=== PATIENT | female | born 1945 | race Caucasian/White ===

== ENCOUNTER 2016-10-19 10:52 | Inpatient (IN) | payer OTHER ==
[~2016-10-19] VITALS: Ht 152.4 cm; Wt 73.0 kg
--- NOTE | ~2016-10-19 | 2DMMODE ---
[facility] [address] [place] [address] 2 D/M-MODE ECHOCARDIOGRAM Name: SIOBHAN POLLACK ANN Room #: 540-P [facility] IN M.R.#: [id number] Admission: 10/19/16 Attend Phys: Daljit Trevino, Discharge: Date of : 49 Date of Service: 10/20/16 1201 Report #: [id number] THIS REPORT FOR: //name// APPROVED REPORT Study performed: 10/20/2016 08:53:02 EXAM: Comprehensive 2D, Doppler, and color-flow Echocardiogram Patient Location: Bedside Room #: 540 Status: routine Other Information Study Quality: Adequate Technically limited study due to lung artifact and body habitus. Indications CVA/TIA Hx: HTN Echo Enhancing Agent Indication: Rule out Shunt Agent(s) / Amount(s) Used: Agitated Saline 6 cc Agitated Saline 6 cc 2D Dimensions RVDd: 34.97 mm LVEF(%): 53.23 (>50%) IVSd: 1.10 (7-11mm) LVOT Diam: 19.02 (18-24mm) LVDd: 36.76 mm PWd: 1.10 (7-11mm) LVDs: 26.90 (25-40mm) Aortic Root: 31.73 mm Torres's LVEF: 53.23 % Volumes Left Atrial Volume (Systole) Single Plane 4CH: 98.93 mL Single Plane 2CH: 80.63 mL LA ESV Index: 56.00 mL/m2 Aortic Valve AoV Peak Robin.: 2.55 m/s AO Peak Gr.: 26.07 mmHg LVOT Max P.43 mmHg AO Mean Gr.: 14.50 mmHg AO V2 Mean: 1.85 m/s LVOT Max V: 1.54 m/s [facility] [place] [address] 2 D/M-MODE ECHOCARDIOGRAM Name: JAKISIOBHAN Room #: 540-P [facility] IN M.R.#: [id number] Admission: 10/19/16 Attend Phys: Daljit Trevino, Discharge: Date of : 49 Date of Service: 10/20/16 1201 Report #: [id number] AO V2 VTI: 47.70 cm YESSY Vmax: 1.71 cm2 Mitral Valve E/A Ratio: 0.8 MV Decel. Time: 270.15 ms MV E Max Robin.: 1.08 m/s MV A Robin.: 1.37 m/s MV PHT: 78.34 ms IVRT: 78.43 ms Pulmonary Valve PV Peak Robin.: 1.73 m/s PV Peak Gr.: 11.99 mmHg Pulmonary Vein P Vein S: 0.90 m/s P Vein A: 0.36 m/s P Vein D: 0.57 m/s P Vein A Dur.: 124.6 msec P Vein S/D Ratio: 1.58 Tricuspid Valve TR Peak Robin.: 3.31 m/s RAP Estimate: 5.00 mmHg TR Peak Gr.: 43.84 mmHg PA Pressure: 49.00 mmHg Left Ventricle The left ventricle is normal size. There is normal LV segmental wall motion. There is normal left ventricular wall thickness. Left ventricular systolic function is normal. LVEF is 55-60%. Grade I - abnormal relaxation pattern. Right Ventricle The right ventricle is normal size. The right ventricular systolic function is normal. Atria Left atrium is severely dilated. Injection of bubbles documented no interatrial shunt. with few bubbles appearing late consistent with intrapulmonary transit The right atrium size is normal. Aortic Valve Aortic valve is calcified but difficult to image. Trace aortic regurgitation. There is mild valvular aortic stenosis. Calculated aortic valve area is 1.7 cm2 with maximum pressure gradient of 26 mmHg and mean pressure gradient of 15 mmHg. Mitral Valve [facility] [address] [place] [address] 2 D/M-MODE ECHOCARDIOGRAM Name: SIOBHAN POLLACK Room #: 540-P [facility] IN M.R.#: [id number] Admission: 10/19/16 Attend Phys: Daljit Trevino, Discharge: Date of : 49 Date of Service: 10/20/16 1201 Report #: [id number] Moderate mitral annular calcification. The mitral valve is mildly thickened. Trace to mild mitral regurgitation. Tricuspid Valve The tricuspid valve is normal in structure. There is mild to moderate tricuspid regurgitation. The right atrial pressure is estimated at 5 mmHg. There is moderate pulmonary hypertension with an estimated PAP of 45-50mmHg. Pulmonic Valve Pulmonic valve is not well visualized. Mild pulmonic regurgitation. Great Vessels The aortic root is normal in size. Ascending aorta is not well visualized. IVC is normal in size and collapses >50% with inspiration. Pericardium There is no pericardial effusion. <Conclusion> The left ventricle is normal size. LVEF is 55-60%. Left atrium is severely dilated. Injection of bubbles documented no interatrial shunt. with few bubbles appearing late consistent with intrapulmonary transit Aortic valve is calcified but difficult to image. Trace aortic regurgitation. There is mild valvular aortic stenosis. Calculated aortic valve area is 1.7 cm2 with maximum pressure gradient of 26 mmHg and mean pressure gradient of 15 mmHg. Moderate mitral annular calcification. The mitral valve is mildly thickened. Trace to mild mitral regurgitation. The tricuspid valve is normal in structure. There is mild to moderate tricuspid regurgitation. The right atrial pressure is estimated at 5 mmHg. There is moderate pulmonary hypertension with an estimated PAP of 45-50mmHg. Pulmonic valve is not well visualized. Mild pulmonic regurgitation. <ELECTRONICALLY SIGNED> By: Pelon Shannon MD 10/20/16 1201 1201 120 Pelon Shannon MD /INF
[2016-10-19 10:52] VITALS: BP 104/52
[~2016-10-19 10:52] MED LIST: ACYCLOVIR 400400 MG PO; ALTACE10 MG PO; APAP500 PO; ASPIR 8181 MG PO; CALCIUM CARBONATE; COLACE100 MG PO; IBUPROFEN 200200 M1 PO; KEFLEX500 MG PO; KLOR-CON 1010 MEQ PO; LASIX 20 MG TAB20 MG PO; ONDANSETRON HCL4 M2 PO; OXYBUTYNIN ER 55 M1 PO; PERIDEX15 ML MM; SULFAMETHOXAZOLE PO; TRAMADOL 50 MG50 MG PO; TRIAMCINOLONE A80 G2 TOP; TRIMETHOPRIM PO; UNICOMPLEX M TA1 TA1 PO; [UNRECOGNIZED DRUG - OTHER]
[2016-10-19 12:57] LABS: CALCIUM 9.9 mg/dL (8.5-10.1); CREATININE 0.9 mg/dL (0.6-1.0); POTASSIUM 4.2 mmol/L (3.5-5.1)
[2016-10-19 13:02] LABS: HEMATOCRIT 26.9 % (37.0-47.0); HEMOGLOBIN 8.3 gm/dL (12.0-15.0); MCH 29.5 pg (26.0-34.0); MCV 95.3 fL (80.0-100.0); PLATELET COUNT 257 thou/uL (150-400); RBC 2.82 mil/uL (4.20-5.00); RDW 20.5 % (10.5-14.5); WBC 6.9 thou/uL (4.0-11.0)
[2016-10-19 13:14] LABS: MANUAL DIFF YES
[2016-10-19 13:30] VITALS: BP 108/62
[2016-10-19 13:51] LABS: ABSOLUTE NEUTROPHILS 5.7 thou/uL (1.4-8.2); ANISOCYTOSIS 1+; TOTAL CELL COUNT 100
[2016-10-19 14:15] VITALS: BP 111/49
[2016-10-19] MEDS ORDERED: AZO BLADDER CONTROL PO (16:06)
[2016-10-19] MEDS ORDERED: IMBRUVICA140 MG PO ×2 (16:07→20:32)
[2016-10-20 01:58] VITALS: BP 130/60
[2016-10-20 04:31] LABS: HEMATOCRIT 22.4 % (37.0-47.0); MCH 29.6 pg (26.0-34.0); MCHC 31.5 g/dL (28.0-37.0); RBC 2.38 mil/uL (4.20-5.00); RDW 20.2 % (10.5-14.5)
[2016-10-20 04:55] LABS: CALCIUM 8.7 mg/dL (8.5-10.1); CREATININE 0.7 mg/dL (0.6-1.0); TOTAL BILIRUBIN 0.4 mg/dL (<0.1-1.0); TOTAL PROTEIN 5.4 g/dL (6.4-8.2)
[2016-10-20 07:45] VITALS: BP 116/53
[2016-10-20 12:31] LABS: CHOLESTEROL 105 mg/dL (<200); HDL CHOLESTEROL 31 mg/dL (>40); LDL CHOLESTEROL 55 mg/dL (<100); TC:HDL 3.4 Ratio (Not establshd); TRIGLYCERIDE 98 mg/dL (<150); VLDL 20 mg/dL (<40)
[2016-10-20 13:05] LABS: FOLIC ACID 13.9 ng/mL (8.6-58.9)
[2016-10-20 14:05] VITALS: BP 113/52; BP 115/55
[2016-10-20 20:00] VITALS: BP 147/93
[2016-10-21 04:00] VITALS: BP 114/56
[2016-10-21 15:30] VITALS: BP 115/51
[2016-10-21 19:19] VITALS: BP 120/55
[2016-10-21 20:15] LABS: HEMATOCRIT 27.2 % (37.0-47.0); HEMOGLOBIN 8.8 gm/dL (12.0-15.0); MCH 30.2 pg (26.0-34.0); MCHC 32.5 g/dL (28.0-37.0); MCV 93.1 fL (80.0-100.0); RBC 2.92 mil/uL (4.20-5.00); RDW 19.8 % (10.5-14.5); WBC 5.2 thou/uL (4.0-11.0)
[2016-10-21 20:33] LABS: CALCIUM 8.8 mg/dL (8.5-10.1); CREATININE 0.7 mg/dL (0.6-1.0); POTASSIUM 3.7 mmol/L (3.5-5.1); TOTAL BILIRUBIN 0.4 mg/dL (<0.1-1.0); TOTAL PROTEIN 5.8 g/dL (6.4-8.2)
[2016-10-21] MEDS ORDERED: BACTRIM DS TAB1 EACH PO (22:24)
[2016-10-22 03:42] VITALS: BP 109/58
[2016-10-22 05:33] LABS: HEMATOCRIT 25.8 % (37.0-47.0); HEMOGLOBIN 8.3 gm/dL (12.0-15.0); MCH 29.7 pg (26.0-34.0); MCHC 32.1 g/dL (28.0-37.0); MCV 92.7 fL (80.0-100.0); RBC 2.78 mil/uL (4.20-5.00); RDW 18.9 % (10.5-14.5); WBC 4.1 thou/uL (4.0-11.0)
[2016-10-22 08:53] VITALS: BP 111/47
[2016-10-22 16:10] VITALS: BP 113/52
[2016-10-22 19:22] VITALS: BP 119/51
[2016-10-23 04:16] VITALS: BP 126/63
[2016-10-23 06:07] LABS: HEMATOCRIT 26.7 % (37.0-47.0); HEMOGLOBIN 8.6 gm/dL (12.0-15.0); MCH 29.7 pg (26.0-34.0); MCHC 32.1 g/dL (28.0-37.0); MCV 92.7 fL (80.0-100.0); RBC 2.89 mil/uL (4.20-5.00); RDW 19.3 % (10.5-14.5); WBC 3.9 thou/uL (4.0-11.0)
[2016-10-23 08:06] VITALS: BP 114/67
== END 2016-10-23 15:55 | DRG 542 ==
LOC: ER 10:52 → EROBS 13:10 → 5S 13:10
PROVIDERS: Internal Medicine; Internal Medicine Hematology & Oncology; Nurse Practitioner; Psychiatry & Neurology Neurology
PROC: 30233N1 Transfusion of Nonautologous Red Blood Cells into Peripheral Vein, Percutaneous Approach (ICD-10-PCS; principal; 2016-10-20)
DX: C79.51 Secondary malignant neoplasm of bone (principal); E43 Unspecified severe protein-calorie malnutrition; D62 Acute posthemorrhagic anemia; C91.10 Chronic lymphocytic leukemia of B-cell type not having achieved remission; I10 Essential (primary) hypertension; G89.29 Other chronic pain; I89.0 Lymphedema, not elsewhere classified; M89.9 Disorder of bone, unspecified; Z90.710 Acquired absence of both cervix and uterus; Z88.1 Allergy status to other antibiotic agents; Z88.0 Allergy status to penicillin; Z79.82 Long term (current) use of aspirin; Z79.899 Other long term (current) drug therapy; Z68.31 Body mass index [BMI] 31.0-31.9, adult
CPT/HCPCS: 10086

== ENCOUNTER 2016-10-26 06:37 | Inpatient (IN) | payer OTHER ==
[~2016-10-26] VITALS: Ht 160 cm; Wt 71.3 kg
--- NOTE | ~2016-10-26 | CNG ---
[facility] [place] [address] [address] [place] [address] CYTO-NONGYN REPORT PROCEDURE Name: CECILIA KATZ Room #: 207-P [facility] IN M.R.#: [id number] Admission: 10/26/16 Date of : 49 Discharge: 10/27/16 Report #: [id number] Path Case #: [id number] CYTOPATHOLOGY REPORT COLLECTION DATE: 10/26/2016 RECEIVED DATE: 10/26/2016 SUBMITTING PHYS: Dr. Caesar Chen OTHER PHYS: Dr. Sarbjit Kumari CLINICAL HISTORY: CLL with adenopathy and bone lesions. PROCEDURE: A. Passes performed by Dr. Chen yielding fluid. Two H and E slides, and 50 mL from needle rinsed in formalin were submitted to the lab. SPECIMEN(S) RECEIVED: A.EBUS guided Fine needle aspiration, lymph node 4R Pass 1 * * * * * * * * * * * * FINAL DIAGNOSIS: EBUS guided fine needle aspiration, lymph node 4R Pass 1: - Predominantly small lymphocytes present consistent with B-cell lymphoma. (See comment) (CLW:jim; 10/28/2016) COMMENT: Cytomorphological examination of H and E stained smears and the corresponding cell block shows lymphoid tissue present. The lymphocytes are predominantly small, round and mature appearing with condensed chromatin and scant cytoplasm. No significant large lymphoid component is identified. Background reactive bronchial epithelial cells are also present. Properly controlled immunohistochemical stains are performed on the cell block. Block A1 PAX5 - mixture of B-cell and T-cell lymphocytes CD3 - mixture of B-cell and T-cell lymphocytes Flow cytometric immunophenotype analysis was performed at [facility]. The diagnosis is "consistent with CD10+ B-cell lymphoproliferative disorder". There are 83% T-cells with a CD4/CD8 ratio of 0.7 and no aberrant T-cell antigen expression. There are 11% mature B-cells that are small in size based on forward scatter and show CD5 neg, CD10 pos, CD19 pos with surface kappa light chain restriction (kappa/lambda ratio of 111.3). Flow cytometry shows monoclonal B-cells (7% of total cells) with dim CD10 expression consistent with a CD10+ B-cell lymphoproliferative disorder. Due to the low cellularity, a limited flow cytometry panel is performed. Please see separate flow cytometry report from [facility] [address] CYTO-NONGYN REPORT PROCEDURE Name: CECILIA KATZ Room #: 207-P [facility] IN ..#: [id number] Admission: 10/26/16 Date of : 49 Discharge: 10/27/16 Report #: [id number] Path Case #: [id number] [facility] ([id number]). 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 No significant large lymphoid component is identified on the cellular preparations or detected by flow cytometry. There is no diagnostic evidence of transformation in the material sampled; however, this is a small portion of a larger lesion and may not be entirely product support representative. Therefore, large cell transformation cannot be entirely excluded. If there is a strong clinical suspicion for large cell transformation, complete morphologic evaluation of involved lymph node/lymphoid structure may provide additional information, if clinically indicated. Peripheral blood contamination of the specimen is also a diagnostic consideration. Clinical and radiographic correlation is required. Rib Bender H and E stained slides are co-reviewed with Dr. Julia Serrano. (CLW:jim; 10/28/2016) PATHOLOGIST: Ena Schilling M.D. REPORT ELECTRONICALLY SIGNED BY: Ena Schilling M.D. DATE/TIME: 10/28/2016 23:17 * * * * * * * * * * * * GROSS PATHOLOGY: A. EBUS guided Fine needle aspiration, lymph node 4R Pass 7: The specimen is labeled "Cecilia Katz" and consists of two H and E slides. Fifty mL of brown cloudy fluid in formalin from the needle rinse is also submitted and a cell block only was prepared from this material. (clt 10.26.2016) IMMEDIATE EVALUATION: A. EBUS Lymph node 4R Pass 7: Per Dr. Schilling: Lymphoid tissue present. Professional services performed under supervision of [facility] at [address] [place] [address]. TRUCK DRIVING INSTRUCTOR(S): PERNELL Hickman([facility]) INITIAL CPT CODE(S): A; 58537, 49505, 31762, 13169, 82613 Professional services performed by [facility] at [facility] [address] [place] [address] Technical services performed by [facility] at [address] [place] [address], [address], [place] [address]. [facility] [place] [address] CYTO-NONGYN REPORT PROCEDURE Name: CECILIA KATZ Room #: 207-P DIS IN M.R.#: [id number] Admission: 10/26/16 Date of : 49 Discharge: 10/27/16 Report #: [id number] Path Case #: [id number] [id number] [facility], [address] [place] [address] PHONE: [phone] DIRECTOR: Sandoval Casas M.D. * * * END OF REPORT * * *
--- NOTE | ~2016-10-26 | P ---
[facility] [place] [address] [address] [place] [address] PROCEDURE REPORT Name: SIOBHAN POLLACK Room #: 207-P [facility] M.R.#: [id number] Admission: 10/26/16 Attend Phys: Caesar Chen MD Discharge: Date of : 49 Report #: [id number] THIS REPORT FOR: //name// CC: Sarbjit Cardenas MD DATE OF SERVICE: 10/26/2016 PROCEDURE: Fiberoptic bronchoscopy with endobronchial ultrasound with fine-needle aspirates with 22 and 25-gauge needles of an 11R lymph node under general endotracheal anesthesia. INDICATION: History of CLL with possible transformation with a PET avid mediastinal mass, ASA classification class II. PROCEDURE NOTATION: After discussing risks and benefits of the planned procedure with the patient and , they desired to proceed. After obtaining informed consent, she was brought to the operating room 1, where she was placed under general endotracheal anesthesia by anesthesia service and an 8.5 end[address] tube was in place. Once complete, the patient was positioned in proper position. A white light bronchoscope was advanced through the endotracheal tube until the distal trachea was seen. Distal trachea, mainstem, lobar, segmental and subsegmental bronchi were explored and appeared patent, with no significant anatomic variation or disease. Endotracheal tube was repositioned in optimal position for a planned, what appeared to be, 4R sampling. This was secured in position. The white light bronchoscope was removed. The endobronchial ultrasound device was then advanced and the lymph node stations were all surveyed in usual standard fashion. The 11R lymph node measured 3.5 mm. Level 7 lymph node measured 3.5. A 4R lymph node measured 21 mm, 4L 6 mm, 10L and 11L were not particularly visible. Two 25-gauge needle aspirates of the 4R lymph node were passed; one for a rapid onsite pathology, which confirmed good lymph node tissue and one sent in RPMI solution for flow cytometry. An additional 8 passes using 22-gauge core needles were sent in formalin for histopathology and cell block. The patient tolerated well. No noted complications, dictated while the patient in recovery room. IMPRESSION: Large mediastinal mass, likely enlarged lymph node, status post bronchoscopy with sampling, as noted above. RECOMMENDATIONS: 1. Admit for at least overnight observation at this point, given the late [facility] [address] [place] [address] PROCEDURE REPORT Name: SIOBHAN POLLACK Room #: 207-P [facility] M.R.#: [id number] Admission: 10/26/16 Attend Phys: Caesar Chen MD Discharge: Date of : 49 Report #: [id number] recovery from anesthesia and the patient's very brittle status. 2. Await pathology. By: 1645 2320 Caesar Chen MD /nt
[~2016-10-26 06:37] MED LIST changes: +AZO BLADDER CONTROL PO; +BACTRIM DS TAB1 EACH PO; +IMBRUVICA140 MG PO
[2016-10-26 11:04] LABS: HEMATOCRIT 30.8 % (37.0-47.0); HEMOGLOBIN 9.8 gm/dL (12.0-15.0); MCH 29.5 pg (26.0-34.0); MCHC 31.8 g/dL (28.0-37.0); MCV 92.9 fL (80.0-100.0); RBC 3.32 mil/uL (4.20-5.00); RDW 19.4 % (10.5-14.5); WBC 6.1 thou/uL (4.0-11.0)
[2016-10-26 11:12] LABS: CREATININE 0.6 mg/dL (0.6-1.0); POTASSIUM 4.1 mmol/L (3.5-5.1)
[2016-10-26 11:17] LABS: PROTIME 10.2 Seconds (9.3-11.4)
[2016-10-26 15:34] VITALS: BP 125/98
[2016-10-26 16:55] VITALS: BP 116/34
[2016-10-26 23:12] VITALS: BP 118/56
[2016-10-27 03:48] LABS: CALCIUM 8.6 mg/dL (8.5-10.1); CREATININE 0.5 mg/dL (0.6-1.0); MAGNESIUM 1.9 mg/dL (1.8-2.4); POTASSIUM 3.9 mmol/L (3.5-5.1)
[2016-10-27 03:53] LABS: RBC 2.56 mil/uL (4.20-5.00); WBC 3.8 thou/uL (4.0-11.0)
[2016-10-27 03:57] LABS: HEMATOCRIT 23.6 % (37.0-47.0); MCH 29.8 pg (26.0-34.0); MCHC 32.4 g/dL (28.0-37.0); RDW 19.6 % (10.5-14.5)
[2016-10-27 04:26] LABS: HEMOGLOBIN 7.6 gm/dL (12.0-15.0); PLATELET COUNT 184 thou/uL (150-400)
[2016-10-27 04:27] LABS: MANUAL DIFF YES
[2016-10-27 04:45] VITALS: BP 116/59
[2016-10-27 05:32] LABS: ABSOLUTE NEUTROPHILS 3.2 thou/uL (1.4-8.2); ANISOCYTOSIS 2+; METAMYELOCYTES 1 %; TOTAL CELL COUNT 100
[2016-10-27 07:40] VITALS: BP 117/54
[2016-10-27 11:40] VITALS: BP 101/51
[2016-10-27] MEDS ORDERED: FENTANYL PA12 MCG/H1 TRANSDERM (14:34)
== END 2016-10-27 16:11 | DRG 580 ==
LOC: TBA 06:37 → OR 06:37 → 2N 18:00 → OR 18:01 → 2N 10-27 16:11
PROVIDERS: Internal Medicine Pulmonary Disease; Nurse Practitioner
PROC: 0BJ08ZZ Inspection of Tracheobronchial Tree, Via Natural or Artificial Opening Endoscopic (ICD-10-PCS; principal; 2016-10-26)
PROC: 07B73ZX Excision of Thorax Lymphatic, Percutaneous Approach, Diagnostic (ICD-10-PCS; principal; 2016-10-26)
DX: R22.2 Localized swelling, mass and lump, trunk (principal); C91.10 Chronic lymphocytic leukemia of B-cell type not having achieved remission; C85.90 Non-Hodgkin lymphoma, unspecified, unspecified site; D63.8 Anemia in other chronic diseases classified elsewhere; K59.00 Constipation, unspecified; R40.0 Somnolence; G89.29 Other chronic pain; I10 Essential (primary) hypertension; M79.7 Fibromyalgia; Z88.8 Allergy status to other drugs, medicaments and biological substances; Z88.0 Allergy status to penicillin; Z79.899 Other long term (current) drug therapy; Z90.710 Acquired absence of both cervix and uterus; Z98.890 Other specified postprocedural states; Z90.49 Acquired absence of other specified parts of digestive tract; Z88.1 Allergy status to other antibiotic agents
CPT/HCPCS: 10797; 62110; 62900; 70005

== ENCOUNTER 2016-11-09 13:39 | Observation (INO) | payer OTHER ==
[~2016-11-09] VITALS: Ht 160 cm; Wt 72.6 kg
[~2016-11-09 13:39] MED LIST changes: +FENTANYL PA12 MCG/H1 TRANSDERM
[2016-11-09 13:40] VITALS: BP 111/42
[2016-11-09 14:11] LABS: HEMATOCRIT 21.9 % (37.0-47.0); HEMOGLOBIN 6.9 gm/dL (12.0-15.0); MANUAL DIFF YES; MCH 28.6 pg (26.0-34.0); MCHC 31.5 g/dL (28.0-37.0); MCV 90.7 fL (80.0-100.0); PLATELET COUNT 218 thou/uL (150-400); RBC 2.42 mil/uL (4.20-5.00); RDW 20.2 % (10.5-14.5); WBC 5.3 thou/uL (4.0-11.0)
[2016-11-09 14:22] LABS: INR 1.1; PROTIME 10.9 Seconds (9.3-11.4)
[2016-11-09 14:29] LABS: CALCIUM 8.1 mg/dL (8.5-10.1); CREATININE 0.5 mg/dL (0.6-1.0); POTASSIUM 4.3 mmol/L (3.5-5.1)
[2016-11-09 14:33] LABS: ALBUMIN 1.8 g/dL (3.4-5.0); TOTAL BILIRUBIN 0.6 mg/dL (<0.1-1.0); TOTAL PROTEIN 5.6 g/dL (6.4-8.2)
[2016-11-09 14:34] LABS: ABSOLUTE NEUTROPHILS 4.4 thou/uL (1.4-8.2); ANISOCYTOSIS 1+; METAMYELOCYTES 1 %; TOTAL CELL COUNT 100
[2016-11-09 15:32] VITALS: BP 104/50
[2016-11-09 16:43] VITALS: BP 100/45; BP 99/48
[2016-11-09 17:00] VITALS: BP 99/48
[2016-11-09 19:12] VITALS: BP 118/50
[2016-11-09 20:40] VITALS: BP 109/45; BP 110/67; BP 111/52; BP 115/54
[2016-11-10 04:13] VITALS: BP 101/48
[2016-11-10 05:05] LABS: HEMATOCRIT 24.8 % (37.0-47.0); HEMOGLOBIN 8.1 gm/dL (12.0-15.0); MCH 28.8 pg (26.0-34.0); MCHC 32.6 g/dL (28.0-37.0); MCV 88.4 fL (80.0-100.0); PLATELET COUNT 176 thou/uL (150-400); RDW 18.7 % (10.5-14.5); WBC 4.1 thou/uL (4.0-11.0)
[2016-11-10 05:14] LABS: CALCIUM 8.3 mg/dL (8.5-10.1); CREATININE 0.5 mg/dL (0.6-1.0); MAGNESIUM 1.8 mg/dL (1.8-2.4)
[2016-11-10 05:23] LABS: MANUAL DIFF YES
[2016-11-10 05:59] LABS: ABSOLUTE NEUTROPHILS 3.4 thou/uL (1.4-8.2); ANISOCYTOSIS 2+; LARGE PLATELETS OCCASIONAL; METAMYELOCYTES 1 %; NUCLEATED RBCS 1 /100WBC; TOTAL CELL COUNT 100
[2016-11-10 07:18] VITALS: BP 103/56
== END 2016-11-10 17:59 | disposition home or self-care (01) ==
LOC: ER 13:39 → EROBS 15:27 → 4S 17:23
PROVIDERS: Nurse Practitioner; Physician Assistant
DX: D53.9 Nutritional anemia, unspecified (principal); C91.10 Chronic lymphocytic leukemia of B-cell type not having achieved remission; C85.90 Non-Hodgkin lymphoma, unspecified, unspecified site; I10 Essential (primary) hypertension; E43 Unspecified severe protein-calorie malnutrition; I89.0 Lymphedema, not elsewhere classified; R22.2 Localized swelling, mass and lump, trunk; R53.81 Other malaise; G89.29 Other chronic pain; M79.7 Fibromyalgia; M62.81 Muscle weakness (generalized); Z72.89 Other problems related to lifestyle

== ENCOUNTER → 2016-12-01 | Outpatient (CLI) | payer OTHER ==
[~2016-12-01] MED LIST changes: +CALCIUM ANTACI PO; +FENTANYL PA25 MCG/HR TRANSDERM; +HYDROCODONE-AP1 EAC6 PO; +IRON325 PO; +SENOKOT-S1 TA1 PO
[2016-12-01 12:58] VITALS: BP 111/41; BP 114/46
[2016-12-01 15:31] VITALS: BP 114/46; BP 115/67; BP 124/67
== END ==
LOC: OPONC 10:30
DX: C95.90 Leukemia, unspecified not having achieved remission (principal); D64.9 Anemia, unspecified
CPT/HCPCS: 91030; 95113